=== PATIENT | female | born 1985 | race Caucasian/White ===

== ENCOUNTER 2017-01-12 17:24 | Emergency (ER) | payer OTHER ==
--- NOTE | ~2017-01-12 | CR72 ---
[facility]. [facility] A Service of [facility] & [facility] RADIOLOGY TEXT RESULTS PATIENT: STEVE CUENCA LOCATION: SED : 89 UNIT #: [id number] AGE: [address]: Wai Bojorquez MD SEX: F ORDER DR: [id number] [address] [address] [id number] E MR#: [id number] Acc #: [id number] NAME: STEVE CUENCA : 1985 SEX: F STUDY DATE/TIME: 01/12/2017 18:25 UNIT: SED ROOM: STUDY DESCRIPTION: CR Chest Single View Portable Attending Physician: Wai Bojorquez M.D. Ordering Physician: Wai Bojorquez M.D. Primary Care Physician: Best Huerta M.D. MEDICAL IMAGING REPORT This report is preliminary unless electronic signature is present. EXAM Portable chest HISTORY Flu-like symptoms with shortness breath and vomiting for the past 3 days. TECHNIQUE Single view chest was obtained and compared with 10/12/2016 FINDINGS A single AP portable view of the chest shows both lungs to be clear. The heart is normal in size. The mediastinal contour is normal. No significant bone abnormalities are seen. IMPRESSION Normal portable chest. Dictated by... John Aponte M.D. THIS IS AN ELECTRONICALLY VERIFIED REPORT John Aponte M.D. at 01/13/2017 4:55 PM RLF/lorri TD: 01/12/2017 21:27 JOB #: [id number] MEDICAL IMAGING REPORT Page 1 of 1
[~2017-01-12 17:24] MED LIST: AMBIEN PO; AMOXICILLIN875 MG PO; ANTIVERT12.5 MG PO; BACLOFEN10 MG PO; BACTRIM DS TABL1 TA1 PO; BIRTH CONTROL PILL PO; DICLOFENAC PO; EFFEXOR; EFFEXOR37.5 MG PO; EFFEXOR75 M2 PO; FLAGYL; FLEXERIL PO; GUAIFENESIN W/C10 ML PO; HYDROXYZINE HCL10 MG; HYDROXYZINE HCL25 M1 PO; IBUPROFEN800 MG PO; IMPLANON; IMPLANON68 MG/IMPL SQ; KEPPRA1000 MG PO; MACROBID100 MG PO; NEXPLANON68 MG; NO MEDICATIONS; NORCO1 TAB 10/3 PO; PHENOBARB PO; PRENATAL VITAMI1 TA3 PO; PYRIDIUM PO; ROBAXIN500 MG PO; SLEEPING PILL; SUMATRIPTA4 MG/0.5 M SQ; SUMATRIPTAN5 MG; VALTREX PO; ZOFRAN PO; ZOLOFT PO; ZOVIRAX800 MG PO
[2017-01-12] MEDS ORDERED: LAMICTAL (17:31)
[2017-01-12 17:55] LABS: INFLUENZA A POS (NEG); INFLUENZA B NEG (NEG)
[2017-01-12 18:23] LABS: URINE APPEARANCE CLEAR; URINE BILIRUBIN NEG (NEG); URINE BLOOD 3+ (NEG); URINE COLOR YELLOW; URINE GLUCOSE NEG (NORM); URINE KETONE NEG (NEG); URINE LEUKOCYTE ESTERASE TRACE (NEG); URINE NITRATE NEG (NEG); URINE PROTEIN TRACE (NEG)
[2017-01-12 18:24] LABS: MICRO INDICATED? YES; URINE SOURCE CLEAN CATCH
[2017-01-12 18:29] LABS: CULTURE INDICATED? NO; URINE BACTERIA NEG (NEG); URINE RBC 25-50 /[HPF] (0-2); URINE WBC 0-2 /[HPF] (0-5)
[2017-01-19] MEDS ORDERED: EFFEXOR (16:06)
[2017-01-19] MEDS ORDERED: ZOFRAN ODT4 MG (16:07)
[2017-01-19] MEDS ORDERED: TAMIFLU30 MG (16:07)
[2017-01-19] MEDS ORDERED: BROMPHED (16:07)
== END 2017-01-12 19:00 | disposition home or self-care (01) ==
LOC: SED 17:24
PROVIDERS: Emergency Medicine
DX: J10.1 Influenza due to other identified influenza virus with other respiratory manifestations (principal); R11.10 Vomiting, unspecified; Z88.8 Allergy status to other drugs, medicaments and biological substances
CPT/HCPCS: 71010; 81003; 84703; 87804; 96361; 96374; 96375; 99284; J1885; J2405

== ENCOUNTER 2017-01-19 16:26 | Emergency (ER) | payer OTHER ==
--- NOTE | ~2017-01-19 | CR63 ---
[facility]. [facility] A Service of [facility] & [facility] RADIOLOGY TEXT RESULTS PATIENT: STEVE CUENCA LOCATION: SED : 89 UNIT #: [id number] AGE: [address]: Arnulfo Candelario SEX: F ORDER DR: [id number] [address] [address] [id number] E MR#: [id number] Acc #: [id number] NAME: STEVE CUENCA : 1985 SEX: F STUDY DATE/TIME: 01/19/2017 17:11 UNIT: SED ROOM: STUDY DESCRIPTION: CR Chest 2 View Attending Physician: Arnulfo Candelario P.A.-C. Ordering Physician: Arnulfo Candelario P.A.-C. Primary Care Physician: Best Huerta M.D. MEDICAL IMAGING REPORT This report is preliminary unless electronic signature is present. EXAM Two-view chest INDICATION Cough for 1 week. Congestion. History of flu. FINDINGS PA and lateral views of the chest compared to 01/12/2017. Heart and mediastinal contour is normal. Lungs are clear. No pleural effusion. IMPRESSION Negative chest radiograph. Dictated by... Aleksander Felder M.D. THIS IS AN ELECTRONICALLY VERIFIED REPORT Aleksander Felder M.D. at 01/20/2017 7:52 AM AUGUST/smita TD: 01/19/2017 21:44 JOB #: [id number] MEDICAL IMAGING REPORT Page 1 of 1
[~2017-01-19 16:26] MED LIST changes: +BROMPHED; +LAMICTAL; +TAMIFLU30 MG; +ZOFRAN ODT4 MG
[2017-01-19 16:47] LABS: BASOPHIL# 0.1 X10e3 (0-0.3); BASOPHIL% 0.7 % (0-2.5); EOSINOPHIL# 0.2 X10e3 (0-0.7); EOSINOPHIL% 1.9 % (0.0-7.0); HEMATOCRIT 41.3 % (35.0-45.0); HEMOGLOBIN 14.5 gm/dL (12.0-16.0); LYMPHOCYTE# 1.4 X10e3 (1.0-3.5); LYMPHOCYTE% 14.7 % (17.0-45.0); MEAN CELL VOLUME 81.8 FL (83-96); MEAN CORPUSCULAR HEMOGLOBIN 28.6 PG (28-34); MONOCYTE# 0.7 X10e3 (0-1.0); MONOCYTE% 6.9 % (3.0-12.0); NEUTROPHIL# 7.2 X10e3 (1.5-7.1); NEUTROPHIL% 75.8 % (40-75); PLATELET COUNT 319 X10e3 (140-420); RED BLOOD COUNT 5.05 X10e (3.90-5.30); RED CELL DISTRIBUTION WIDTH 13.1 % (11.0-15.5); WHITE BLOOD COUNT 9.5 X10e3 (4.0-10.5)
[2017-01-19 16:52] LABS: DIFF IND NO
[2017-01-19 17:06] LABS: ALBUMIN SERUM 4.1 g/dL (3.5-5.0); BILIRUBIN, DIRECT 0.1 mg/dL (0.0-0.2); BILIRUBIN,INDIRECT 0.1 mg/dL (0.0-0.9); BILIRUBIN,TOTAL 0.2 mg/dL (0.2-2.0); BUN/CREATININE RATIO 7.5; CALCIUM SERUM 8.9 mg/dL (8.4-10.2); CREATININE SERUM 0.8 mg/dL (0.6-1.4); GLOM FILT RATE Estimated 99.7 mL/min (>60); POTASSIUM 3.6 mmol/L (3.5-5.1)
[2017-01-19 17:11] LABS: MICRO INDICATED? YES; URINE APPEARANCE CLEAR; URINE BILIRUBIN NEG (NEG); URINE BLOOD 1+ (NEG); URINE COLOR YELLOW; URINE GLUCOSE NEG (NORM); URINE KETONE NEG (NEG); URINE LEUKOCYTE ESTERASE TRACE (NEG); URINE NITRATE NEG (NEG); URINE PROTEIN NEG (NEG); URINE SOURCE CLEAN CATCH; URINE SPECIFIC GRAVITY 1.015 (1.003-1.035)
[2017-01-19 17:13] LABS: CULTURE INDICATED? YES; URINE BACTERIA 1+ (NEG); URINE MUCUS PRESENT; URINE SQUAMOUS EPITHELIAL CELL MODERATE /[HPF]; URINE WBC 0-2 /[HPF] (0-5); URINE YEAST PRESENT
[2017-01-19 17:17] LABS: AMPHETAMINE NEG (NEG); BARBITURATES NEG (NEG); BENZODIAZEPINES NEG (NEG); COCAINE NEG (NEG); MARIJUANA NEG (NEG); OPIATES NEG (NEG); TRICYCLIC ANTIDEPRESSANTS NEG (NEG); U METHADONE NEG (NEG)
== END 2017-01-19 18:17 | disposition home or self-care (01) ==
LOC: SED 16:26
PROVIDERS: Physician Assistant
DX: G40.909 Epilepsy, unspecified, not intractable, without status epilepticus (principal); F06.8 Other specified mental disorders due to known physiological condition
CPT/HCPCS: 36415; 71020; 80048; 80076; 80307; 81003; 84703; 85025; 87086; 96361; 96374; 99284; J2405

== ENCOUNTER 2017-03-16 15:46 | Emergency (ER) | payer OTHER ==
[2017-03-16 16:19] LABS: URINE APPEARANCE SL CLOUDY; URINE BILIRUBIN NEG (NEG); URINE BLOOD 3+ (NEG); URINE COLOR YELLOW; URINE GLUCOSE NEG (NORM); URINE KETONE NEG (NEG); URINE LEUKOCYTE ESTERASE 3+ (NEG); URINE NITRATE NEG (NEG); URINE PH 7.5 (5-8); URINE PROTEIN NEG (NEG); URINE SPECIFIC GRAVITY 1.015 (1.003-1.035); URINE UROBILINOGEN 0.2 MG/DL (NORM)
[2017-03-16 16:22] LABS: MICRO INDICATED? YES; URINE SOURCE CLEAN CATCH
[2017-03-16 16:25] LABS: URINE BACTERIA 1+ (NEG); URINE SQUAMOUS EPITHELIAL CELL MANY /[HPF]
[2017-03-16 16:29] LABS: AMPHETAMINE NEG (NEG); BARBITURATES NEG (NEG); BENZODIAZEPINES NEG (NEG); COCAINE NEG (NEG); MARIJUANA NEG (NEG); OPIATES NEG (NEG); TRICYCLIC ANTIDEPRESSANTS NEG (NEG); U METHADONE NEG (NEG)
== END 2017-03-16 17:08 | disposition home or self-care (01) ==
LOC: SED 15:46
PROVIDERS: Emergency Medicine
DX: G40.909 Epilepsy, unspecified, not intractable, without status epilepticus (principal); N39.0 Urinary tract infection, site not specified; F41.9 Anxiety disorder, unspecified; Z88.2 Allergy status to sulfonamides; Z88.8 Allergy status to other drugs, medicaments and biological substances; Z88.5 Allergy status to narcotic agent
CPT/HCPCS: 36415; 80307; 81003; 84703; 96361; 96374; 99284; J2060

== ENCOUNTER 2017-03-21 12:35 | Emergency (ER) | payer OTHER | END 2017-03-21 14:09 | disposition home or self-care (01) | LOC: SED 12:35 | DX: G40.909 Epilepsy, unspecified, not intractable, without status epilepticus (principal); F43.10 Post-traumatic stress disorder, unspecified; F41.1 Generalized anxiety disorder; Z90.49 Acquired absence of other specified parts of digestive tract; Z98.890 Other specified postprocedural states; Z88.1 Allergy status to other antibiotic agents; Z88.8 Allergy status to other drugs, medicaments and biological substances | CPT/HCPCS: 82947; 99284 ==

== ENCOUNTER 2017-03-28 10:02 | Emergency (ER) | payer OTHER | END 2017-03-28 11:13 | disposition home or self-care (01) | LOC: SED 10:02 | DX: R56.9 Unspecified convulsions (principal); Z88.8 Allergy status to other drugs, medicaments and biological substances | CPT/HCPCS: 82947; 99284 ==

== ENCOUNTER 2017-06-08 09:52 | Emergency (ER) | payer OTHER ==
[~2017-06-08] VITALS: Ht 165.1 cm; Wt 59.0 kg
[2017-06-08 10:55] LABS: BASOPHIL# 0.1 X10e3 (0-0.3); BASOPHIL% 1.1 % (0-2.5); DIFF IND NO; EOSINOPHIL# 0.1 X10e3 (0-0.7); EOSINOPHIL% 1.5 % (0.0-7.0); HEMATOCRIT 40.6 % (35.0-45.0); HEMOGLOBIN 13.7 gm/dL (12.0-16.0); LYMPHOCYTE# 1.5 X10e3 (1.0-3.5); LYMPHOCYTE% 21.2 % (17.0-45.0); MEAN CELL VOLUME 85.2 FL (83-96); MEAN CORPUSCULAR HEMOGLOBIN 28.9 PG (28-34); MEAN CORPUSCULAR HGB CONC 33.9 g/dL (30-36); MEAN PLATELET VOLUME 7.3 FL (6.5-11.5); MONOCYTE# 0.6 X10e3 (0-1.0); MONOCYTE% 7.7 % (3.0-12.0); NEUTROPHIL% 68.5 % (40-75); PLATELET COUNT 329 X10e3 (140-420); RED BLOOD COUNT 4.76 X10e (3.90-5.30); RED CELL DISTRIBUTION WIDTH 13.5 % (11.0-15.5); WHITE BLOOD COUNT 7.3 X10e3 (4.0-10.5)
[2017-06-08 11:14] LABS: URINE SOURCE CLEAN CATCH
[2017-06-08 11:20] LABS: BUN/CREATININE RATIO 6.66; CALCIUM SERUM 9.2 mg/dL (8.4-10.2); CREATININE SERUM 0.9 mg/dL (0.6-1.4); GLOM FILT RATE Estimated 86.5 mL/min (>60); POTASSIUM 4.3 mmol/L (3.5-5.1)
[2017-06-08 11:30] LABS: URINE APPEARANCE CLEAR; URINE BILIRUBIN NEG (NEG); URINE BLOOD 2+ (NEG); URINE COLOR YELLOW; URINE GLUCOSE NEG (NEG); URINE KETONE NEG (NEG); URINE LEUKOCYTE ESTERASE NEG (NEG); URINE NITRATE NEG (NEG); URINE PROTEIN NEG (NEG); URINE SPECIFIC GRAVITY 1.006 (1.003-1.035); URINE UROBILINOGEN 0.2 MG/DL (NEG)
[2017-06-08 11:33] LABS: URINE BACTERIA AUWI NEG (NEGATIVE); URINE SQUAMOUS EPITHELIAL CELL OCC /[HPF]; UWBCS1 AUWI 0-2 (0-5)
[2017-06-08 11:34] LABS: CULTURE INDICATED? NO
[2017-06-08 11:45] LABS: AMPHETAMINE NEG (NEG); BARBITURATES NEG (NEG); BENZODIAZEPINES NEG (NEG); COCAINE NEG (NEG); MARIJUANA NEG (NEG); OPIATES NEG (NEG); TRICYCLIC ANTIDEPRESSANTS NEG (NEG); U METHADONE NEG (NEG)
== END 2017-06-08 13:00 | disposition home or self-care (01) ==
LOC: CED 09:52
PROVIDERS: Emergency Medicine
DX: R56.9 Unspecified convulsions (principal); Z88.8 Allergy status to other drugs, medicaments and biological substances
CPT/HCPCS: 80048; 80307; 81003; 82947; 84703; 85025; 99284